=== PATIENT | female | born 1985 | race American Indian/Alaskan Native ===

== ENCOUNTER 2016-09-02 09:58 | Outpatient (CLI) | payer MEDICAID ==
--- NOTE | 2016-09-01 08:40 | History and Physical Report ---
History of Present Illness Date of examination: 08/31/16 Chief complaint: Incompetent cervix History of present illness: Pt is a 30 year old -[place] female [id number] KATIANA 03/10/17 at 13w0d with a h/o incompetent cervix presents for Hanson cerclage placement. She denies vaginal bleeding, cramping or leakage of fluid. She has had care at [facility] since 7 wks complicated by morbid obesity, chronic hypertension on no meds presently, anemia on iron supplementation, beta thalassemia minor, genital herpes without lesion or prodrome, previous section x 1, and h/o incompetent cervix with two second trimester losses and previous cerclage placement x 2. 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 LIVING ASSISTANT History: abnormal PAP smear, herpes Family/Genetic History: diabetes, heart disease Social history: no significant social history - Obstetrical History Expected Date of Delivery: 03/10/17 Actual Gestation: 12 Week(s) 6 Day(s) : 6 Para: 1 Hx # Term Pregnancies: 1 Number of Pregnancies: 2 Spontaneous Abortions: 2 Induced : 0 Number of Living Children: 1 Medications and Allergies Allergies Allergy/AdvReac Type Severity Reaction Status Date / Time No Known Allergies Allergy Verified 02/07/15 18:23 Home Medications Medication Instructions Recorded Confirmed Last Taken Type Ferrous Sulfate [Feosol 325 MG tab] 325 mg PO TID #120 tablet 02/12/15 Unknown Rx Ibuprofen [Motrin 800 MG tab] 800 mg PO Q6H PRN #30 tablet 02/12/15 Unknown Rx oxyCODONE /ACETAMINOPHEN [Percocet 2 tab PO Q4H PRN #30 tablet 02/12/15 Unknown Rx 5/325 mg] Review of Systems All systems: negative - Physical Exam Breasts: Positive: deferred Cardiovascular: Regular rate Lungs: Positive: Clear to auscultation Abdomen: Positive: soft (obese) Uterus: Positive: enlarged (gravid ) Extremities: Positive: normal - Obstetrical FHR: auscultation normal Results All other labs normal. Assessment and Plan A: IUP at 13w0d Incompetent Cervix Morbid Obesity Chronic Hypertension- no meds Previous x 1 Anemia on iron supplementation Beta thalassemia minor Genital Herpes P: Proceed with Hanson cerclage placement.
[~2016-09-02 09:58] MED LIST: ANCEF/STERILE WATER 2 GM/20 ML 2 GM/20 ML SYRINGE IV NR; NACL 0.9% 1000 ML 1,000 ML IV SCH
[2016-09-02] MEDS ORDERED: LACTATED RINGERS 1,000 ML ONE ×3 (10:21→17:28)
[2016-09-02] MEDS ORDERED: PEPCID IV ONE (10:50)
[2016-09-02] MEDS ORDERED: REGLAN ONE (10:50)
[2016-09-02] MEDS ORDERED: BICITRA ONE (10:50)
[2016-09-02 10:56] LABS: Hematocrit 30.9 % (30.3-42.9); Hemoglobin 9.4 gm/dl (10.1-14.3); Mean Corpuscular HGB Conc 30 % (30-34); Mean Corpuscular Hemoglobin 22 pg (28-32); Mean Corpuscular Volume 71 fl (79-97); Platelet Count 458 K/mm3 (140-440); Red Blood Count 4.38 M/mm3 (3.65-5.03); Red Cell Distribution Width 18.5 % (13.2-15.2); White Blood Count 13.8 K/mm3 (4.5-11.0)
--- NOTE | 2016-09-02 13:56 | Ultrasound Report ---
Limited OB ultrasound: There is a alvarez intrauterine in transverse lie with the head to the maternal right. There is heart motion of 156 beats per minute. Estimated age is 11 weeks 6 days.
--- NOTE | 2016-09-02 14:24 | Anesthesia Consultation ---
Anesthesia Consult and Med Hx Date of service: 09/02/16 - Airway Anesthetic Teeth Evaluation: Good ROM Head & Neck: Adequate Mental/Hyoid Distance: Adequate Mallampati Class: Class II Intubation Access Assessment: Probably Good - Pre-Operative Health Status ASA Pre-Surgery Classification: ASA3 Proposed Anesthetic Plan: Spinal - Pulmonary Hx Smoking: No Hx Asthma: No COPD: No Hx Pneumonia: No - Cardiovascular System Hx Hypertension: Yes (pt states that BP was high last 2 visits) Hx Coronary Artery Disease: No Hx Heart Attack/AMI: No Hx Angina: No - Central Nervous System Hx Seizures: No CVA: No Hx Psychiatric Problems: No - Endocrine Hx Renal Disease: No Hx End Stage Renal Disease: No Hx Non-Insulin Dependent Diabetes: No Hx Thyroid Disease: No Hx Hypothyroidism: No Hx Hyperthyroidism: No - Hematic Hx Anemia: Yes Hx Sickle Cell Disease: No - Other Systems Hx Obesity: Yes (BMI 46.7)
[2016-09-02] MEDS ORDERED: PHENERGAN PR PRN (14:25)
[2016-09-02] MEDS ORDERED: NARCAN 0.4 MG/1 ML IV PRN (14:25)
[2016-09-02] MEDS ORDERED: ZOFRAN IV PRN (14:25)
[2016-09-02] MEDS ORDERED: BENADRYL IV PRN (14:25)
[2016-09-02] MEDS ORDERED: PHENERGAN PO PRN (14:25)
--- NOTE | 2016-09-02 14:25 | Anesthesia Day of Surgery ---
Anesthesia Day of Surgery - Day of Surgery Patient Examined: Yes Patient H&P Reviewed: Yes Patient is NPO: Yes
[2016-09-02] MEDS ORDERED: SODIUM CHLORIDE FLUSH SYRINGE 10 ML IV SCH (15:00)
[2016-09-02] MEDS ORDERED: NACL 0.9% 1000 ML 1,000 ML ONE (15:17)
--- NOTE | 2016-09-02 16:16 | Operative Report ---
Operative Report Operative Report: Date of procedure: September 02, 2016 Preoperative diagnosis: 1) IUP at 13w0d 2) Incompetent Cervix 3) Morbid Obesity 4) Chronic Hypertension Postoperative diagnosis: Same Procedure: Hanson Cerclage Surgeon: Paris Mejias M.D. Findings: Cervix approximately 2 cm in length and closed on exam Anesthesia: Spinal EBL: 25 mL IV fluid: 700 mL Urine output: 50 mL prior to procedure Specimens: None Drains: None Complications: None. Counts correct 2 Disposition: Stable to recovery Indication for procedure: The patient is a 30 year old -Brune[place] female [id number] at 13w0d with a h/o cervical incompetence who presents for Hanson cerclage placement. Operation in detail: After the risks, benefits, alternatives and complications of the procedure were explained to the patient she gave informed consent for the procedure. FHTs were documented prior to the procedure. She was subsequently taken to the operating room with her IV noted to be running. A timeout was performed. Spinal anesthesia was administered without difficulty. She was then placed in high lithotomy position and prepped and draped in normal sterile fashion. A second timeout was performed. The bladder was drained with a red rubber catheter yielding 50 mL of urine prior to the procedure. An open-sided speculm was placed into the patient's vagina for adequate visualization of the cervix. A Ring forcep was placed on the anterior lip of the cervix. A #1 Prolene suture was inserted through the cervical mucosa starting at the 12 o'clock position. A circumferential stitch was placed in a purse-string fashion ending at the 12 o'clock position. A sterile button was used and both ends of the suture were threaded through the button. Multiple knots of the #1 Prolene suture were tied on the surface of the sterile button. There was no evidence of any active bleeding or leakage of fluid. All instruments were then removed from the vagina. The procedure was ended. The patient was then placed in the dorsal supine position and taken to the recovery room in stable condition. All instrument, lap and needle counts were correct 2. An ultrasound has been ordered to follow the procedure.
--- NOTE | 2016-09-02 16:21 | Short Stay Summary ---
Short Stay Documentation Date of service: 09/02/16 - History Social history: no significant social history - Allergies and Medications Current Medications: Allergies bupropion HCl [From Wellbutrin] Allergy (Severe, Verified 09/02/16 11:17) Shortness of Breath and hives Home Medications Medication Instructions Recorded Confirmed Last Taken Type Ferrous Sulfate [Feosol 325 MG tab] 325 mg PO TID #120 tablet 02/12/15 Unknown Rx Ibuprofen [Motrin 800 MG tab] 800 mg PO Q6H PRN #30 tablet 02/12/15 Unknown Rx oxyCODONE /ACETAMINOPHEN [Percocet 2 tab PO Q4H PRN #30 tablet 02/12/15 Unknown Rx 5/325 mg] HYDROcodone/APAP 5-325 [[place] 1 each PO Q6HR PRN #30 tablet 09/02/16 Unknown Rx 5/325] Active Medications Diphenhydramine HCl (Benadryl) 12.5 mg IV Q2H PRN PRN Reason: Itching Cefazolin Sodium (Ancef/Sterile Water 2 Gm/20 Ml) 2 gm in 20 mls @ 80 mls/hr IV PREOP NR PRN Reason: Protocol Stop: 09/02/16 23:01 Sodium Chloride (Nacl 0.9% 1000 Ml) 1,000 mls @ 125 mls/hr IV DIRECT SEAN Stop: 09/02/16 23:00 Naloxone HCl (Narcan 0.4 Mg/1 Ml) 0.2 mg IV Q2MIN PRN PRN Reason: Res Rate </= 8 or 02 SAT < 92% Stop: 09/04/16 14:26 Ondansetron HCl (Zofran) 4 mg IV Q8H PRN PRN Reason: Nausea And Vomiting Promethazine HCl (Phenergan) 25 mg PO Q6H PRN PRN Reason: Nausea And Vomiting Promethazine HCl (Phenergan) 25 mg [place] Q6H PRN PRN Reason: Nausea And Vomiting Sodium Chloride (Sodium Chloride Flush Syringe 10 Ml) 10 ml IV PRN SEAN - Physical exam Breasts: deferred - Brief post op/procedure progress note Date of procedure: 09/02/16 Pre-op diagnosis: 1) IUP at 13w0d 2) Incompetent Cervix 3) Morbid Obesity 4) HTN Post-op diagnosis: same Procedure: Hanson Cerclage placement Anesthesia: spinal Findings: Cervix approximately 2 cm in length and closed on exam Surgeon: TOPHER CRENSHAW Estimated blood loss: minimal (25 mL) Pathology: none Condition: stable - Hospital course Hospital course: Pt tolerated Hanson cerclage placement well. She was observed postoperatively until she met discharge criteria. - Disposition Condition at discharge: Stable Disposition: DISCHARGED TO HOME OR SELFCARE - Discharge Diagnoses (1) Morbid obesity with BMI of 45.0-49.9, adult Status: Acute (2) Chronic hypertension affecting Status: Acute (3) Cervical incompetence affecting management of in second trimester , antepartum Status: Acute (4) Previous section complicating Status: Acute Short Stay Discharge Plan Activity: other (Nothing in vagina for the remainder of the ) Weight Bearing Status: Full Weight Bearing Diet: regular Additional Instructions: Spotting, cramping and pain while urinating are expected for 3-5 days after the procedure. Please call your doctor for severe pain or heavy vaginal bleeding greater than one pad per hour. Follow up with: TOPHER CRENSHAW MD [Primary Care Provider] - 7 Days Prescriptions: HYDROcodone/APAP 5-325 [[place] 5/325] 1 each PO Q6HR PRN #30 tablet PRN Reason: Pain
[2016-09-02] MEDS ORDERED: NORCO 5/325 PO PRN (16:26)
[2016-09-02 19:20] VITALS: BP 146/79
--- NOTE | 2016-09-04 08:26 | Ultrasound Report ---
ULTRASOUND OB LIMITED History: Status post cervical cerclage, confirm viability Technique: Transabdominal ultrasound with Doppler interrogation. Gestation: Single Position: Breech Heart Rate: 159 BPM
== END 2016-09-02 19:38 | disposition home or self-care (01) ==
LOC: TRG 09:58 → LD 09:59 → EDSTATUS 11:30 → TRG 19:38
PROVIDERS: ATTEND Obstetrics & Gynecology
DX: O34.31 Maternal care for cervical incompetence, first trimester (principal); O32.2XX0 Maternal care for transverse and oblique lie, not applicable or unspecified; O16.1 Unspecified maternal hypertension, first trimester; O99.211 Obesity complicating pregnancy, first trimester; Z3A.11 11 weeks gestation of pregnancy
CPT/HCPCS: 36415; 59320; 76815; 85027; 86850; 86870; 86900; 86901; J0690; J2405; J2765; J7030; J7120

== ENCOUNTER 2017-01-09 10:36 | Outpatient (CLI) | payer MEDICAID ==
[2017-01-09] MEDS ORDERED: LACTATED RINGERS 500 ML IV ONE (11:04)
[2017-01-09] MEDS ORDERED: NORCO 5/325 PO PRN (11:08)
[2017-01-09 15:26] VITALS: BP 139/82
--- NOTE | 2017-01-10 09:56 | Ultrasound Report ---
Gestation: Single Position: Cephalic Amniotic Fluid: ORQUIDEA = 12.6 cm Placenta: Anterior Placental Grade: 0 Heart Rate: 120 BPM No evidence of abruption.
== END 2017-01-09 15:50 | disposition home or self-care (01) ==
LOC: TRG 10:36 → LD 12:09 → TRG 15:50
PROVIDERS: ATTEND Obstetrics & Gynecology
DX: O47.03 False labor before 37 completed weeks of gestation, third trimester (principal); Z3A.31 31 weeks gestation of pregnancy
CPT/HCPCS: 59025; 76815

== ENCOUNTER 2017-02-03 17:43 | Inpatient (IN) | payer MEDICAID ==
[2017-02-03 18:16] LABS: Hematocrit 25.3 % (30.3-42.9); Hemoglobin 7.6 gm/dl (10.1-14.3); Mean Corpuscular HGB Conc 30 % (30-34); Platelet Count 359 K/mm3 (140-440); Red Blood Count 3.75 M/mm3 (3.65-5.03); Red Cell Distribution Width 17.1 % (13.2-15.2)
[2017-02-03 18:20] LABS: Bilirubin,Urine NEG (Negative); Blood,Urine NEG (Negative); Ketones,Urine 20 mg/dL (Negative); Leukocyte Esterase,Urine TR (Negative); Mucus,Urine FEW /HPF; Nitrite,Urine NEG (Negative); Protein,Urine <15 mg/dL mg/dL (Negative); Urobilinogen,Urine < 2.0 mg/dL (<2.0)
[2017-02-03 18:20] LABS: Mean Corpuscular Hemoglobin 20 pg (28-32); Mean Corpuscular Volume 68 fl (79-97)
[2017-02-03 18:36] LABS: Alanine Aminotransferase 13 units/L (7-56); Lactate Dehydrogenase 268 units/L (91-180); Uric Acid 4.8 mg/dL (3.5-7.6)
[2017-02-03] MEDS ORDERED: NORMODYNE PO SCH (19:06)
[2017-02-03] MEDS ORDERED: APRESOLINE IV PRN (22:05)
[2017-02-03] MEDS ORDERED: NORMODYNE PO ONE (22:05)
[2017-02-03] MEDS: AMBIEN PO PRN (22:55)
[2017-02-03] MEDS: CELESTONE SOLUSPAN IM SCH (22:58)
[2017-02-03] MEDS ORDERED: LACTATED RINGERS 1,000 ML IV SCH (23:00)
--- NOTE | 2017-02-04 07:52 | Ultrasound Report ---
ULTRASOUND OB LIMITED History: well being Technique: Transabdominal ultrasound with Doppler interrogation. Gestation: Single Position: Cephalic Amniotic Fluid: Normal ORQUIDEA = 13.5 cm Heart Rate: 138 BPM
--- NOTE | 2017-02-04 07:52 | Ultrasound Report ---
ULTRASOUND BIOPHYSICAL PROFILE: History: well being Technique: Transabdominal ultrasound with Doppler interrogation. 2 - breathing movements 2 - movements 2 - posture and tone 2 - Qualitative amniotic fluid volume 8 - TOTAL SCORE OF POSSIBLE 8 Heart Rate (bpm) 138
--- NOTE | 2017-02-04 08:56 | History and Physical Report ---
History of Present Illness Date of examination: 02/04/17 Date of admission: 02/03/17 21:03 Chief complaint: elevated BP in the clinic History of present illness: This is a 31 yo at 35 weeks here for elevated BP. She was sent over by the [facility] with BP 160/70s. She denies any manning, bv, pain on right upper side nor scotomata. She was sent to triage and had a PIH w/u essentially normal. see labs section. Patient had been a known chronic HTN on no meds and had some elevated BP in the clinic and was RX labetolol 100 mg BID. She did not bean picker RX until yesterday and took one dose. She was seen by [facility] and noted elevated BP and had another appt at [facility] and elevated BP. 160/80s. Patient had a BPP 8/8 normal ORQUIDEA. NST category 1. patient was given 200 mg labetolol and consult on phone with Dr. Degroot who recommneded that if BP decreased may be discharged home with f/u 2x weekly antepartum testing. Patient BP decreased but increased to 160/70s and it was decided to keep patient for 24 hr for observation. During the night upon admission increased to 200 mg ( total of 400mg bid) BP through out night 110-140/70-80s. Awaiting MFM consultation and 24 hr urine collection turned into lab emy yesterday . 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 denies: smoking, alcohol abuse, prescription drug abuse, IV drug use - Obstetrical History Expected Date of Delivery: 03/10/17 Actual Gestation: 35 Week(s) 1 Day(s) : 6 Para: 1 Hx # Term Pregnancies: 1 Number of Pregnancies: 2 Spontaneous Abortions: 2 Induced : 0 Number of Living Children: 1 Medications and Allergies Allergies Allergy/AdvReac Type Severity Reaction Status Date / Time bupropion HCl Allergy Severe Shortness Verified 09/02/16 11:17 [From Wellbutrin] of Breath Home Medications Medication Instructions Recorded Confirmed Last Taken Type Ferrous Sulfate [Feosol 325 MG tab] 325 mg PO TID #120 tablet 02/12/15 Unknown Rx Ibuprofen [Motrin 800 MG tab] 800 mg PO Q6H PRN #30 tablet 02/12/15 Unknown Rx oxyCODONE /ACETAMINOPHEN [Percocet 2 tab PO Q4H PRN #30 tablet 02/12/15 Unknown Rx 5/325 mg] HYDROcodone/APAP 5-325 [[place] 1 each PO Q6HR PRN #30 tablet 09/02/16 Unknown Rx 5/325] Active Meds: Active Medications Betamethasone Acet/Betameth SodPhos (Celestone Soluspan) 12 mg IM Q24H SEAN Stop: 02/04/17 23:01 Last Admin: 02/03/17 22:58 Dose: 12 mg Hydralazine HCl (Apresoline) 5 mg IV Q30MIN PRN PRN Reason: Blood Pressure Lactated Ringer's (Lactated Ringers) 1,000 mls @ 125 mls/hr IV DIRECT SEAN Labetalol HCl (Normodyne) 300 mg PO BID SEAN Zolpidem Tartrate (Ambien) 10 mg PO QHS PRN PRN Reason: Insomnia Last Admin: 02/03/17 22:55 Dose: 10 mg Review of Systems All systems: negative - Vital Signs Vital signs: Vital Signs Pulse BP 79 146/80 02/03/17 17:49 02/03/17 17:49 Temp Pulse Resp BP Pulse Ox 97.3 F L 85 16 145/83 02/04/17 07:15 02/04/17 08:34 02/04/17 07:15 02/04/17 08:34 - Physical Exam Breasts: Positive: deferred Cardiovascular: Regular rate, Normal S1 Lungs: Positive: Clear to auscultation, Normal air movement Abdomen: Positive: normal appearance, soft, normal bowel sounds. Negative: distention, tenderness, guarding Genitourinary (Female): Positive: normal external genitalia, normal perenium Vulva: both: normal Vagina: Positive: normal moisture Uterus: Positive: normal size, enlarged, normal contour Anus/Rectum: Positive: normal perianal skin Extremities: Positive: normal Deep Tendon Reflex Grade: Normal +2 - Obstetrical FHR: category 1 Results Result Diagrams: 02/03/17 17:45 02/03/17 17:45 Abnormal lab results 02/03/17 02/03/17 02/03/17 Range/Units 17:45 17:45 17:45 WBC 13.0 H (4.5-11.0) K/mm3 Hgb 7.6 L (10.1-14.3) gm/dl Hct 25.3 L (30.3-42.9) % MCV 68 L (79-97) fl MCH 20 L (28-32) pg RDW 17.1 H (13.2-15.2) % Creatinine 0.5 L (0.7-1.2) mg/dL Lactate Dehydrogenase 268 H (91-180) units/L Crossmatch See Detail All other labs normal. Ultrasound: report reviewed Assessment and Plan A/P IUP 35+1 weeks with chronic HTN assess for Preeclampsia previous 24 hr urine 290 on continuous monitoring labetolol 300 mg po bid awiat 24 uring turned in yesterday s/p BMZ x1 next dose due today close monitor of BP goal 140/80 await MFM recommendations
[2017-02-04] MEDS ORDERED: NORMODYNE PO SCH (10:00)
[2017-02-04] MEDS: NORMODYNE PO SCH ×2 (10:16→22:29)
[2017-02-04 11:15] LABS: Hematocrit 24.9 % (30.3-42.9); Hemoglobin 7.6 gm/dl (10.1-14.3); Mean Corpuscular HGB Conc 31 % (30-34); Platelet Count 347 K/mm3 (140-440); Red Blood Count 3.71 M/mm3 (3.65-5.03); Red Cell Distribution Width 17.2 % (13.2-15.2)
[2017-02-04 11:16] LABS: Mean Corpuscular Hemoglobin 21 pg (28-32); Mean Corpuscular Volume 67 fl (79-97)
[2017-02-04 11:38] LABS: Alanine Aminotransferase 14 units/L (7-56); Lactate Dehydrogenase 213 units/L (91-180)
--- NOTE | 2017-02-04 12:42 | Consultation ---
History of Present Illness Reason for consult: other (This is a 31 yo at 35.1 weeks presented with elevated BP on 02/03/17 by [facility] with BP 160/70s. Patient had been a known chronic HTN on no meds and had some elevated BP her Ob appt and was RX labetolol 100 mg BID ( patient did not commence until 02/03/17 ). Patient followed by [facility] for Morbid obesity , incompetent cervix , cerclage in situ , and gestational HTN . During this admission patient was given 200 mg labetolol and consult on phone with Dr. Degroot who recommneded that if BP decreased may be discharged home with f/u 2x weekly antepartum testing. Patient BP decreased but increased to 160/70s Patient currently on Labetalol 300 mg PO BID During the night BP through out night 110-140/70-80s. Awaiting resulted 24 hr urine . 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 PAP smear (2015 abnormal ) Family/Genetic History: diabetes (father ), heart disease (father ) - Obstetrical History : 6 Medications and Allergies Allergies Allergy/AdvReac Type Severity Reaction Status Date / Time bupropion HCl Allergy Severe Shortness Verified 09/02/16 11:17 [From Wellbutrin] of Breath Home Medications Medication Instructions Recorded Confirmed Last Taken Type Ferrous Sulfate [Feosol 325 MG tab] 325 mg PO TID #120 tablet 02/12/15 Unknown Rx Ibuprofen [Motrin 800 MG tab] 800 mg PO Q6H PRN #30 tablet 02/12/15 Unknown Rx oxyCODONE /ACETAMINOPHEN [Percocet 2 tab PO Q4H PRN #30 tablet 02/12/15 Unknown Rx 5/325 mg] HYDROcodone/APAP 5-325 [[place] 1 each PO Q6HR PRN #30 tablet 09/02/16 Unknown Rx 5/325] Active Meds: Active Medications Betamethasone Acet/Betameth SodPhos (Celestone Soluspan) 12 mg IM Q24H SEAN Stop: 02/04/17 23:01 Last Admin: 02/03/17 22:58 Dose: 12 mg Hydralazine HCl (Apresoline) 5 mg IV Q30MIN PRN PRN Reason: Blood Pressure Lactated Ringer's (Lactated Ringers) 1,000 mls @ 125 mls/hr IV DIRECT SEAN Labetalol HCl (Normodyne) 300 mg PO BID SEAN Last Admin: 02/04/17 10:16 Dose: 300 mg Zolpidem Tartrate (Ambien) 10 mg PO QHS PRN PRN Reason: Insomnia Last Admin: 02/03/17 22:55 Dose: 10 mg Review of Systems Constitutional: no lethargy Eyes: no blurred vision, no photophobia Cardiovascular: edema (trace however patient is considered Morbidly Obese ), no chest pain, no palpitations, no rapid/irregular heart beat, no syncope, no shortness of breath, no dyspnea on exertion Breasts: deferred Gastrointestinal: no abdominal pain, no vomiting, no heartburn Musculoskeletal: no low back pain Integumentary: no rash Neurological: no headaches Psychiatric: depression (history and is under medical intervention of Zoloft ( ) ) Endocrine: no weight change Hematologic/Lymphatic: no easy bruising, no easy bleeding Allergic/Immunologic: no wheezing - Vital Signs Vital signs: Vital Signs Pulse BP 79 146/80 02/03/17 17:49 02/03/17 17:49 Temp Pulse Resp BP Pulse Ox 97.3 F L 93 H 16 122/72 02/04/17 07:15 02/04/17 12:04 02/04/17 07:15 02/04/17 12:04 - Physical Exam Breasts: Positive: deferred Cardiovascular: Regular rate Lungs: Positive: Normal air movement Abdomen: Negative: tenderness, guarding Cervix: Positive: other (cerclage in situ ( placed 09/02/16 )) Uterus: Positive: other (gravid ). Negative: tender Extremities: Positive: edema (trace) Deep Tendon Reflex Grade: Normal +2 - Obstetrical FHR: category 1 Uterine Contraction Monitor Mode: External (none traced) Results Result Diagrams: 02/04/17 10:40 02/03/17 17:45 Abnormal lab results 02/03/17 02/03/17 02/03/17 Range/Units 17:45 17:45 17:45 WBC 13.0 H (4.5-11.0) K/mm3 Hgb 7.6 L (10.1-14.3) gm/dl Hct 25.3 L (30.3-42.9) % MCV 68 L (79-97) fl MCH 20 L (28-32) pg RDW 17.1 H (13.2-15.2) % Creatinine 0.5 L (0.7-1.2) mg/dL Lactate Dehydrogenase 268 H (91-180) units/L Crossmatch See Detail 02/04/17 02/04/17 Range/Units 10:40 10:40 WBC (4.5-11.0) K/mm3 Hgb 7.6 L (10.1-14.3) gm/dl Hct 24.9 L (30.3-42.9) % MCV 67 L (79-97) fl MCH 21 L (28-32) pg RDW 17.2 H (13.2-15.2) % Creatinine (0.7-1.2) mg/dL Lactate Dehydrogenase 213 H (91-180) units/L Crossmatch All other labs normal. Ultrasound: report reviewed (See chart for full report . 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 Degroot ) 1) Consider discharge with no findings of Superimposed PreEclampsia , CAT I tracing , no maternal/ compromise 2) Iron supplement TID 3) Out patient Hematology consult 4) Upon discharge close supervison with weekly OB and [facility] for AP and BP surveillance 5) Forward recently performed 24 hr urine to [facility] 6) Precautions reviewed 7) No change in Labetalol 300mg PO BID patient to continue as outpatient 8) With any concerns call on [facility] doctor_ Dr. Degroot
--- NOTE | 2017-02-04 16:20 | Discharge Summary ---
Providers - Providers Date of Admission: 02/03/17 21:03 Date of discharge: 02/04/17 Attending physician: CLARISA RAMON MD Primary care physician: CLARISA RAMON MD Hospitalization Reason for admission: other (chronic HTN) Discharge diagnosis: other (chronic HTN ) Hospital course: Patient to be discharged home on labetolol 300 mg po bid bed rest 2x weekly Antepartum testing strict precautions given Condition at discharge: Good Disposition: DC-01 TO HOME OR SELFCARE Plan - Discharge Medications Prescriptions: Labetalol [Normodyne TAB] 100 mg PO BID #60 tablet - Provider Discharge Summary Additional instructions: [] Smoking cessation referral if applicable(refer to patient education folder for contact #) [] Refer to [facility]'s [facility] Booklet Call your doctor immediately for: * Fever > 100.5 * Heavy vaginal bleeding ( >1 pad per hour) * Severe persistent headache * Shortness of breath * Reddened, hot, painful area to leg or breast * Drainage or odor from incision. * Keep incision clean and dry at all times and follow doctor's instructions regarding bathing/showering - Follow up plan Follow up: CLARISA RAMON MD [Primary Care Provider] - 7 Days
[2017-02-04 22:27] LABS: Uric Acid 4.7 mg/dL (3.5-7.6)
[2017-02-04] MEDS: CELESTONE SOLUSPAN IM SCH (23:04)
[2017-02-04] MEDS: AMBIEN PO PRN (23:05)
--- NOTE | 2017-02-05 08:22 | Event Note ---
Date: 02/05/17 No new complaints this am. Pt will be discharged after reactive NST with follow up on Wednesday with Dr Mejias and on Wed with BRITT.
[2017-02-05 10:45] VITALS: BP 140/77
[2017-02-05] MEDS: NORMODYNE PO SCH (10:45)
== END 2017-02-05 11:55 | disposition home or self-care (01) | DRG 781 ==
LOC: TRG 17:43 → LD 17:44 → TRG 21:02 → LD 21:03
PROVIDERS: ADMIT Obstetrics & Gynecology; ATTEND Obstetrics & Gynecology
DX: O10.913 Unspecified pre-existing hypertension complicating pregnancy, third trimester (principal); Z3A.35 35 weeks gestation of pregnancy; O99.343 Other mental disorders complicating pregnancy, third trimester; F32.9 Major depressive disorder, single episode, unspecified; Z88.8 Allergy status to other drugs, medicaments and biological substances; O99.213 Obesity complicating pregnancy, third trimester; E66.01 Morbid (severe) obesity due to excess calories; Z68.42 Body mass index [BMI] 45.0-49.9, adult; D56.3 Thalassemia minor
CPT/HCPCS: 36415; 76815; 76819; 81001; 82565; 83615; 84450; 84460; 84550; 85027; 86850; 86900; 86901; 86922; J0702; J7120

== ENCOUNTER 2017-02-05 19:41 | Outpatient (CLI) | payer MEDICAID ==
[2017-02-05] MEDS ORDERED: LACTATED RINGERS 1,000 ML IV ONE (20:24)
[2017-02-05 21:22] VITALS: BP 147/98
== END 2017-02-05 23:00 | disposition home or self-care (01) ==
LOC: TRG 19:41
PROVIDERS: ATTEND Obstetrics & Gynecology
DX: O36.8130 Decreased fetal movements, third trimester, not applicable or unspecified (principal); O26.893 Other specified pregnancy related conditions, third trimester; R07.9 Chest pain, unspecified; Z3A.35 35 weeks gestation of pregnancy
CPT/HCPCS: 96360

== ENCOUNTER 2017-02-08 15:00 | Inpatient (IN) | payer MEDICAID ==
[2017-02-08 16:14] LABS: Hematocrit 24.1 % (30.3-42.9); Hemoglobin 7.3 gm/dl (10.1-14.3); Mean Corpuscular HGB Conc 30 % (30-34); Platelet Count 333 K/mm3 (140-440); Red Cell Distribution Width 17.5 % (13.2-15.2); White Blood Count 13.1 K/mm3 (4.5-11.0)
[2017-02-08 16:26] LABS: Mean Corpuscular Hemoglobin 20 pg (28-32); Mean Corpuscular Volume 67 fl (79-97)
[2017-02-08 16:34] LABS: Bilirubin,Urine NEG (Negative); Blood,Urine NEG (Negative); Ketones,Urine NEG (Negative); Leukocyte Esterase,Urine NEG (Negative); Nitrite,Urine NEG (Negative); Protein,Urine <15 mg/dL mg/dL (Negative)
[2017-02-08 16:37] LABS: Alanine Aminotransferase 92 units/L (7-56); Lactate Dehydrogenase 226 units/L (91-180)
[2017-02-08] MEDS ORDERED: PEPCID IV ONE (18:08)
[2017-02-08] MEDS ORDERED: CALCIUM GLUCONATE IV ONE (18:08)
[2017-02-08] MEDS ORDERED: REGLAN IV ONE (18:08)
[2017-02-08] MEDS ORDERED: MAGNESIUM SULFATE 4GM/100ML 4 GM/100 ML BAG IV ONE (18:08)
[2017-02-08] MEDS ORDERED: BICITRA PO ONE (18:08)
[2017-02-08] MEDS ORDERED: NACL 0.9% 500 ML 500 ML IV ONE (18:28)
--- NOTE | 2017-02-08 18:28 | Anesthesia Consultation ---
Anesthesia Consult and Med Hx Date of service: 02/08/17 - Airway Anesthetic Teeth Evaluation: Good ROM Head & Neck: Adequate Mental/Hyoid Distance: Adequate Mallampati Class: Class II Intubation Access Assessment: Probably Good - Pulmonary Exam CTA: Yes - Cardiac Exam Cardiac Exam: RRR - Pre-Operative Health Status ASA Pre-Surgery Classification: ASA3, Emergency Proposed Anesthetic Plan: Epidural, Spinal - Pulmonary Hx Smoking: No Hx Asthma: No COPD: No Hx Pneumonia: No - Cardiovascular System Hx Hypertension: Yes (PIH) Hx Coronary Artery Disease: No Hx Heart Attack/AMI: No Hx Angina: No - Central Nervous System Hx Seizures: No CVA: No Hx Psychiatric Problems: No - Endocrine Hx Renal Disease: No Hx End Stage Renal Disease: No Hx Non-Insulin Dependent Diabetes: No Hx Thyroid Disease: No Hx Hypothyroidism: No Hx Hyperthyroidism: No - Hematic Hx Anemia: No Hx Sickle Cell Disease: No - Other Systems Hx Alcohol Use: No Hx Obesity: Yes (BMI 46.7)
--- NOTE | 2017-02-08 18:29 | Anesthesia Day of Surgery ---
Anesthesia Day of Surgery - Day of Surgery Patient Examined: Yes Patient H&P Reviewed: Yes Patient is NPO: Yes (NPO since 14:00)
[2017-02-08] MEDS ORDERED: PITOCin/NS 20 UNIT/1000ML DRIP 20 UNITS/1,000 ML BAG IV SCH (19:00)
[2017-02-08] MEDS ORDERED: ANCEF/STERILE WATER 2 GM/20 ML 2 GM/20 ML SYRINGE IV NR (19:00)
[2017-02-08] MEDS ORDERED: LACTATED RINGERS 1,000 ML IV SCH (19:00)
[2017-02-08] MEDS: MAGNESIUM SULFATE 40GM/1000ML 40 GM/1,000 ML BAG IV SCH ×2 (19:36→23:19)
[2017-02-08] MEDS: APRESOLINE IV PRN ×3 (20:09→23:38)
[2017-02-08] MEDS: LACTATED RINGERS 1,000 ML IV SCH (20:10)
--- NOTE | 2017-02-08 20:15 | History and Physical Report ---
History of Present Illness Date of examination: 02/08/17 Date of admission: 02/08/17 15:36 Chief complaint: elevated blood pressures History of present illness: Pt is a 31 year old -[place] female KATIANA 03/10/17 at 35w5d who presents from the office with elevated blood pressures 150-160/80-90s in the office. She reports blurry vision and headache on Wednesday02/05/17. She presented to triage, was evaluated and sent home. She also reports that she attempted to take the prescribed labetalol but felt it caused chest pain. She denies chest pain today. She reports decreased movement on Wednesday, but good movement today. She has had care at [facility] since 7 wks complicated by h/o incompetent cervix s/p cerclage placement in August 2016, morbid obesity, anemia, chronic hypertension non-compliant with prescribed labetalol secondary to side effects, beta thalassemia minor, genital herpes without lesion or prodrome, previous x 1. She is GBS unknown (cultures pending at the office). She does not desire future fertility. She was admitted last week for elevated blood pressures and received two doses of betamethasone during that admission on 02/03 and 02/04. While pt being evaluated in triage her blood pressure went up to 170/90s and her AST and ALT were noted to have increased from 14 and 14 on 01/25/17 to [address] Degroot from [facility] was contacted and updated on the patient's clinical status and lab results with recommendation to proceed with delivery. Past History Past Medical History: hypertension, hematologic disorders (beta thalassemia minor, anemia ), other (morbid obesity ) Past Surgical History: [employer]/uterine surgery (cerclage x 2), section, D& C (x 2 ) [employer] History: abnormal PAP smear, herpes Family/Genetic History: diabetes, heart disease Social history: no significant social history - Obstetrical History Expected Date of Delivery: 03/10/17 Actual Gestation: 35 Week(s) 5 Day(s) : 6 Para: 3 Hx # Term Pregnancies: 1 Number of Pregnancies: 2 Spontaneous Abortions: 2 Induced : 0 Number of Living Children: 1 Medications and Allergies Allergies Allergy/AdvReac Type Severity Reaction Status Date / Time bupropion HCl Allergy Severe Shortness Verified 09/02/16 11:17 [From Wellbutrin] of Breath Home Medications Medication Instructions Recorded Confirmed Last Taken Type Ferrous Sulfate [Feosol 325 MG tab] 325 mg PO TID #120 tablet 02/12/15 Unknown Rx Ibuprofen [Motrin 800 MG tab] 800 mg PO Q6H PRN #30 tablet 02/12/15 Unknown Rx oxyCODONE /ACETAMINOPHEN [Percocet 2 tab PO Q4H PRN #30 tablet 02/12/15 Unknown Rx 5/325 mg] HYDROcodone/APAP 5-325 [[place] 1 each PO Q6HR PRN #30 tablet 09/02/16 Unknown Rx 5/325] Labetalol [Normodyne TAB] 100 mg PO BID #60 tablet 02/04/17 Unknown Rx Labetalol HCl 300 mg PO BID #60 tablet 02/05/17 Unknown Rx Active Meds: Active Medications Hydralazine HCl (Apresoline) 5 mg IV Q30MIN PRN PRN Reason: Hypertension Last Admin: 02/08/17 20:09 Dose: 5 mg Cefazolin Sodium (Ancef/Sterile Water 2 Gm/20 Ml) 2 gm in 20 mls @ 80 mls/hr IV PREOP NR PRN Reason: Protocol Stop: 02/08/17 23:59 Lactated Ringer's (Lactated Ringers) 1,000 mls @ 2,250 mls/hr IV PREOP SEAN Stop: 02/09/17 19:27 Last Admin: 02/08/17 20:10 Dose: 2,250 mls/hr Lactated Ringer's (Lactated Ringers) 1,000 mls @ 125 mls/hr IV DIRECT SEAN Magnesium Sulfate (Magnesium Sulfate 40gm/1000ml) 40 gm in 1,000 mls @ 25 mls/ hr IV TITR SEAN PRN Reason: 1 GM/HR Stop: 02/09/17 18:59 Last Admin: 02/08/17 19:36 Dose: 1 gm/hr, 25 mls/hr Oxytocin/Sodium Chloride (Pitocin/Ns 20 Unit/1000ml Drip) 20 units in 1,000 mls @ 0 mls/hr IV TITR SEAN PRN Reason: As Directed Review of Systems All systems: negative - Vital Signs Vital signs: Vital Signs Pulse Pulse Ox 110 H 92 02/08/17 15:26 02/08/17 15:26 Temp Pulse Resp BP Pulse Ox 98.6 F 82 18 177/96 98 02/08/17 19:11 02/08/17 20:09 02/08/17 19:11 02/08/17 20:09 02/08/17 15:47 - Physical Exam Breasts: Positive: deferred Cardiovascular: Regular rate Lungs: Positive: Clear to auscultation Abdomen: Positive: soft (obese, gravid ) Uterus: Positive: enlarged (gravid ) - Obstetrical FHR: auscultation normal Uterine Contraction Monitor Mode: External Uterine Contraction Pattern: Absent Uterine Tone Measurement Phase: Resting Results Result Diagrams: 02/08/17 15:05 02/08/17 15:05 Abnormal lab results 02/08/17 02/08/17 02/08/17 Range/Units 15:05 15:05 15:20 WBC 13.1 H (4.5-11.0) K/mm3 RBC 3.60 L (3.65-5.03) M/mm3 Hgb 7.3 L (10.1-14.3) gm/dl Hct 24.1 L (30.3-42.9) % MCV 67 L (79-97) fl MCH 20 L (28-32) pg RDW 17.5 H (13.2-15.2) % Creatinine 0.6 L (0.7-1.2) mg/dL AST 58 H (5-40) units/L ALT 92 H (7-56) units/L Lactate Dehydrogenase 226 H (91-180) units/L Crossmatch See Detail All other labs normal. Assessment and Plan A: IUP at 35w5d Chronic hypertension with superimposed preeclampsia Incompetent cervix with Hanson cerclage intact Previous x 1 Morbid Obesity Severe chronic Anemia H/o incompetent cervix with s/p cerclage in August 2016 Beta thalassemia minor Genital Herpes without lesion or prodrome Undesired fertility P: Admit to labor and delivery. Type and cross 2 units PRBCs to be given intraop Proceed with repeat section, bilateral tubal ligation and other indicated procedures.
[2017-02-08] MEDS ORDERED: WATER FOR IRRIG STERILE IR ONE (21:10)
[2017-02-08] MEDS ORDERED: NACL 0.9% IR ONE (21:10)
[2017-02-08] MEDS ORDERED: SUBLIMAZE ONE (21:40)
[2017-02-08] MEDS ORDERED: XYLOCAINE MPF 2% ONE ×3 (21:44→22:15)
[2017-02-08] MEDS ORDERED: ZOFRAN ONE (21:45)
[2017-02-08] MEDS ORDERED: MORPHINE ONE (21:47)
[2017-02-08] MEDS ORDERED: VERSED ONE (22:14)
--- NOTE | 2017-02-08 22:58 | Procedure Note ---
OB Delivery Note - Delivery Date of Delivery: 02/08/17 Surgeon: TOPHER CRENSHAW Copy Center Operator: CLARISA RAMON Estimated blood loss: other (900 mL) - Section Preop diagnosis: repeat , other (superimposed preeclampsia ) Postop diagnosis: same section procedure: section, repeat low transverse, bilateral tubal ligation, other (Removal of cerclage ) Disposition: PACU Complications: none Narrative: Please see operative note. - A at 1 minute: 8 at 5 minutes: 9 Infant Gender: Female (5lb 9oz at 2131 pm (2513g))
--- NOTE | 2017-02-08 23:08 | Operative Report ---
Operative Report Operative Report: Date of procedure: February 08, 2017 Preoperative diagnosis: 1) IUP at 35w5d 2) Chronic hypertension with superimposed preeclampsia 3) Previous x 1 4) Morbid Obesity 5) Undesired Fertility 6) Hanson Cerclage 7) Chronic anemia Postoperative diagnosis: Same Procedure: 1) Repeat low transverse section 2) Bilateral tubal ligation via [place] Method 3) Removal of Cerclage Surgeon: Paris Mejias M.D. Anesthesia: Spinal-epidural Findings: 1) Viable female , Apgars 8 and 9, weight 2513g, (5 lb 9 oz) 2) Normal-appearing uterus ovaries and tubes Estimated blood loss: 900 mL IV fluids:1500 mL Blood: 1 unit of PRBCs in the OR Urine output: 350 mL, clear at the end of the procedure Drains: Chin to gravity Specimens: Bilateral tubal segments and placenta to pathology Complications: None. Counts correct x 3 Disposition: Stable to PACU Indication for procedure: Pt is a 31 year old -Pakistani female at 35w5d with a h/o chronic hypertension who presents with elevated blood pressures and increasing LFTs to the office. The decision was made to proceed to delivery secondary to superimposed preeclampsia. Operation in detail: After the risks, benefits, alternatives and complications were explained to the patient she gave informed consent for the procedure. She was subsequently taken to the operating room where spinal-epidural anesthesia was noted to be adequate. She was subsequently placed in the dorsal supine position with leftward tilt and prepped and draped in a normal sterile fashion. heart tones were noted to be in the 145s prior to incision. A timeout was performed. A Pfannenstiel skin incision was made with the knife and carried down to the layer of the fascia with the Bovie. The fascia was incised in the midline and the fascial incision was extended bilaterally with the Bovie. Attention was then turned to the superior aspect of the incision which was grasped with two Kochers, tented up, and dissected off the rectus muscles. Attention was then turned to the inferior aspect of the incision which was grasped with two Kochers , tented up and dissected off the rectus muscles. The rectus muscles were then in the midline. The peritoneum was then entered bluntly. The peritoneal incision was extended with good visualization of the bladder. The peritoneal incision was then stretched. An Madi self-retaining retractor was placed for visualization. The bladder blade was placed. The vesicouterine peritoneum was grasped with smooth pickups and incised with Metzenbaum scissors. Metzenbaum scissors were used to extend the incision bilaterally. The bladder flap was then created digitally and the bladder blade was replaced. A transverse incision was made in the lower uterine segment with a knife and extended bilaterally with the bandage scissors. The head was delivered without difficulty followed by shoulders and body. was bulb suctioned at delivery. The cord was clamped and cut and the was handed to NICU staff in attendance. Cord blood was collected. The placenta was then delivered manually. The uterus was then exteriorized and cleared of all clots and debris. The hysterotomy was then reapproximated with 0 Vicryl in a running locked fashion. A second layer of the same suture was used in imbricating fashion. An additional figure of eight of 2-0 Vicryl was used on the right side of the hysterotomy to obtain hemostasis. Attention was then turned to the tubal ligation. The right tube was identified and followed to to the fimbriae. The tube was then grasped with a [place] and ligated via the [place] method. Attention was then turned to the left tube which in a similar fashion was followed down to the fimbriae, grasped with a Viky, and ligated in via the [place] method. Hemostasis was noted. Both cut ends of the fallopian tubes were cauterized with the Bovie and covered with Surgicel. The hysterotomy was inspected and hemostasis was noted. The uterus was then returned to the peritoneal cavity. All instruments were removed from the abdominal cavity. The gutters were irrigated and cleared of all clots and debris. The hysterotomy was again inspected and noted to be hemostatic. Surgicel was then placed over the hysterotomy. The peritoneum was reapproximated with 2-0 Vicryl in a running fashion. Surgicel was placed over the rectus muscles. The fascia was reapproximated with 0 Vicryl in a running fashion. The subcutaneous tissue was reapproximated with 3-0 Vicryl in a running fashion. The skin was closed with 4-0 Vicryl in a subcuticular fashion. The incision was then covered with steri strips and a pressure dressing. Attention was then turned to removal of the cerclage. The patient was placed in high lithotomy position with candy-cane stirrups. Next a speculum was placed in the vagina which was then cleared of all of clots. The knots overlying the sterile button were grasped with a [place], and the suture was incised on one side above the button and the cerclage was removed. All instruments were then removed from the vagina. The procedure was then ended. The patient tolerated the procedure well and was taken to the PACU in stable condition. All instrument, lap, and needle counts were correct 3.
[2017-02-08] MEDS ORDERED: NARCAN 0.4 MG/1 ML IV PRN (23:11)
--- NOTE | 2017-02-08 23:11 | Post Anesthesia Evaluation ---
- Post Anesthesia Evaluation Patient Participated: Yes Airway Patent: Yes Stable Respiratory Function: Yes Temp > 96.8F: Yes Pain Manageable: Yes Adequeate Hydration: Yes Anesthesia Complications: No Block Receding Appropriately: Yes
[2017-02-08] MEDS: DILAUDID IV PRN ×2 (23:42→23:53)
[2017-02-09] MEDS: DILAUDID IV PRN
[2017-02-09] MEDS ORDERED: CYTOTEC ONE (00:09)
[2017-02-09] MEDS ORDERED: CYTOTEC PR ONE (00:13)
[2017-02-09] MEDS ORDERED: PITOCin/NS 20 UNIT/1000ML DRIP 20 UNITS/1,000 ML BAG IV SCH (00:19)
[2017-02-09] MEDS ORDERED: ZOFRAN IV PRN (00:19)
[2017-02-09] MEDS ORDERED: TUCKS PAD TP PRN (00:19)
[2017-02-09] MEDS ORDERED: SODIUM CHLORIDE FLUSH SYRINGE 10 ML IV PRN (00:19)
[2017-02-09] MEDS ORDERED: MORPHINE IV PRN ×2 (00:19)
[2017-02-09] MEDS ORDERED: NARCAN 0.4 MG/1 ML IV PRN (00:19)
[2017-02-09] MEDS ORDERED: LANSINOH TP PRN (00:19)
[2017-02-09] MEDS: TORADOL IV PRN ×2 (00:30→11:01)
[2017-02-09] MEDS ORDERED: BENADRYL IV ONE (02:23)
[2017-02-09] MEDS: ANCEF/NS 1 GM/50 ML 1 GM/50 ML BAG IV SCH ×2 (03:15→10:41)
[2017-02-09] MEDS: D5LR 1,000 ML IV SCH (05:22)
[2017-02-09 05:48] LABS: Hematocrit 28.3 % (30.3-42.9); Hemoglobin 8.7 gm/dl (10.1-14.3); Mean Corpuscular HGB Conc 31 % (30-34); Mean Corpuscular Volume 71 fl (79-97); Platelet Count 310 K/mm3 (140-440); Red Blood Count 3.98 M/mm3 (3.65-5.03); White Blood Count 20.1 K/mm3 (4.5-11.0)
[2017-02-09 05:49] LABS: Mean Corpuscular Hemoglobin 22 pg (28-32)
[2017-02-09 05:50] LABS: Red Cell Distribution Width 20.4 % (13.2-15.2)
[2017-02-09 06:05] LABS: Alanine Aminotransferase 77 units/L (7-56); Lactate Dehydrogenase 232 units/L (91-180); Uric Acid 4.2 mg/dL (3.5-7.6)
--- NOTE | 2017-02-09 09:07 | Progress Note ---
Assessment and Plan A: POD#1 s/p repeat section at 35w5d, bilateral tubal ligation, removal of cerclage secondary to chronic hypertension with superimposed preeclampsia, anemia s/p 2 units of PRBCs P: Routine care. Continue magnesium sulfate for 24 hrs after delivery. Monitor clinical status closely. Subjective - Subjective Date of service: 02/09/17 Principal diagnosis: s/p repeat , bilateral tubal ligation and cerclage removal Interval history: Pt reports abdominal soreness but otherwise has no complaints. Patient reports: appetite normal, pain well controlled, no voiding normally ( diamond in place ), no flatus, no bowel movement, no ambulating normally (SCDs in place), no nauseated [place]: doing well Objective - Vital Signs Latest vital signs: Vital Signs Temp Pulse Resp BP Pulse Ox 02/09/17 08:18 98.3 F 93 H 18 143/88 02/09/17 06:45 98.4 F 76 20 156/96 02/09/17 04:30 98.4 F 75 20 169/102 02/09/17 01:30 98.3 F 72 18 156/97 02/09/17 00:44 98.5 F 79 20 153/90 98 02/09/17 00:35 82 20 153/94 97 02/09/17 00:30 85 24 156/104 96 02/09/17 00:15 84 18 153/95 97 02/09/17 00:09 98.1 F 89 16 153/95 95 02/09/17 00:00 20 159/97 99 02/08/17 23:53 22 02/08/17 23:45 84 25 H 163/99 98 02/08/17 23:42 19 02/08/17 23:39 98.1 F 83 22 171/100 99 02/08/17 23:38 73 172/104 02/08/17 23:30 77 22 172/104 100 02/08/17 23:24 97.9 F 77 18 164/99 99 02/08/17 23:20 73 18 164/99 99 02/08/17 23:15 72 19 160/97 02/08/17 23:10 69 26 H 163/101 99 02/08/17 23:05 66 18 165/104 99 02/08/17 23:02 73 170/102 02/08/17 23:00 97.9 F 68 27 H 170/102 99 02/08/17 22:58 71 26 H 100 02/08/17 20:15 101 H 163/99 02/08/17 20:14 100 H 172/93 02/08/17 20:09 82 177/96 02/08/17 19:59 85 160/89 02/08/17 19:45 82 177/96 02/08/17 19:42 85 172/85 02/08/17 19:38 82 176/103 02/08/17 19:14 86 153/86 02/08/17 19:11 98.6 F 86 18 153/84 02/08/17 19:10 86 153/84 02/08/17 19:00 98.5 F 82 18 158/89 02/08/17 18:59 82 158/89 02/08/17 18:56 98.2 F 85 18 158/92 02/08/17 18:44 98.2 F 86 18 163/92 02/08/17 18:43 84 159/96 02/08/17 18:29 98.2 F 88 18 163/93 02/08/17 18:14 81 160/90 02/08/17 16:26 87 154/82 02/08/17 15:47 94 H 156/90 98 02/08/17 15:42 87 99 02/08/17 15:37 86 98 02/08/17 15:32 86 139/87 96 02/08/17 15:31 88 94 02/08/17 15:27 166 H 0 L 02/08/17 15:26 110 H 92 Intake and Output 02/08/17 02/09/17 02/09/17 22:59 06:59 14:59 Intake Total 2500 1115 Output Total 350 400 Balance 2150 1115 -400 Intake: IV 2500 625 D5lr 1,000 ml @ 125 mls/ 250 hr IV DIRECT SEAN Rx#: [id number] Lactated Ringers 1,000 ml 1000 @ 2250 mls/hr IV PREOP SEAN Rx#:[id number] MAGNESIUM SULFATE 40GM/ 125 1000ML 40 gm In 1,000 ml @ 1 GM/HR 25 mls/hr IV TITR SEAN Rx#:[id number] PITOCin/NS 20 UNIT/1000ML 250 DRIP 20 units In 1,000 ml @ 250 mls/hr IV DIRECT [facility] Rx#:[id number] Intake, Free Water 240 Blood Product 250 Leukoreduced Red Blood 250 Cells Unit [id number] Output: Urine 350 400 Indwelling Catheter 400 Other: Total, Output Amount 400 Weight 108.409 kg Estimated Blood Loss 900 - Exam Breasts: Present: deferred Cardiovascular: Present: Regular rate Lungs: Present: Clear to auscultation Abdomen: Present: soft (obese ), abnormal bowel sounds (hypoactive ) Uterus: Present: fundal height at umbilicus Extremities: Present: normal Incision: Present: dressed - Labs Labs: Abnormal lab results 02/08/17 02/08/17 02/08/17 Range/Units 15:05 15:05 15:20 WBC 13.1 H (4.5-11.0) K/mm3 RBC 3.60 L (3.65-5.03) M/mm3 Hgb 7.3 L (10.1-14.3) gm/dl Hct 24.1 L (30.3-42.9) % MCV 67 L (79-97) fl MCH 20 L (28-32) pg RDW 17.5 H (13.2-15.2) % Creatinine 0.6 L (0.7-1.2) mg/dL Magnesium (1.7-2.3) mg/dL AST 58 H (5-40) units/L ALT 92 H (7-56) units/L Lactate Dehydrogenase 226 H (91-180) units/L Crossmatch See Detail 02/09/17 02/09/17 Range/Units 05:28 05:28 WBC 20.1 H (4.5-11.0) K/mm3 RBC (3.65-5.03) M/mm3 Hgb 8.7 L (10.1-14.3) gm/dl Hct 28.3 L (30.3-42.9) % MCV 71 L (79-97) fl MCH 22 L (28-32) pg RDW 20.4 H (13.2-15.2) % Creatinine 0.5 L (0.7-1.2) mg/dL Magnesium 3.30 H (1.7-2.3) mg/dL AST 45 H (5-40) units/L ALT 77 H (7-56) units/L Lactate Dehydrogenase 232 H (91-180) units/L Crossmatch
[2017-02-09] MEDS: FEOSOL PO SCH ×2 (10:41→22:01)
[2017-02-09] MEDS: PRENATAL VITAMIN PO SCH (10:41)
--- NOTE | 2017-02-09 10:54 | Progress Note ---
Subjective Date of service: 02/09/17 Principal diagnosis: s/p repeat , bilateral tubal ligation and cerclage removal Interval history: 1st POD after Patient is in the bed, comfortable. Pain is well controlled with pain meds. Has not ambulated due to Mg2SO4 infusion. No residual neurological deficit. No pruritus. No anesthesia complications Objective - Constitutional Vitals: Vital Signs - 12hr 02/08/17 02/08/17 02/08/17 22:58 23:00 23:02 Temperature 97.9 F Pulse Rate 71 68 73 Respiratory 26 H 27 H Rate Blood Pressure 170/102 170/102 O2 Sat by Pulse 100 99 Oximetry 02/08/17 02/08/17 02/08/17 23:05 23:10 23:15 Temperature Pulse Rate 66 69 72 Respiratory 18 26 H 19 Rate Blood Pressure 165/104 163/101 160/97 O2 Sat by Pulse 99 99 Oximetry 02/08/17 02/08/17 02/08/17 23:20 23:24 23:30 Temperature 97.9 F Pulse Rate 73 77 77 Respiratory 18 18 22 Rate Blood Pressure 164/99 164/99 172/104 O2 Sat by Pulse 99 99 100 Oximetry 02/08/17 02/08/17 02/08/17 23:38 23:39 23:42 Temperature 98.1 F Pulse Rate 73 83 Respiratory 22 19 Rate Blood Pressure 172/104 171/100 O2 Sat by Pulse 99 Oximetry 02/08/17 02/08/17 02/09/17 23:45 23:53 00:00 Temperature Pulse Rate 84 Respiratory 25 H 22 20 Rate Blood Pressure 163/99 159/97 O2 Sat by Pulse 98 99 Oximetry 02/09/17 02/09/17 02/09/17 00:09 00:15 00:30 Temperature 98.1 F Pulse Rate 89 84 85 Respiratory 16 18 24 Rate Blood Pressure 153/95 153/95 156/104 O2 Sat by Pulse 95 97 96 Oximetry 02/09/17 02/09/17 02/09/17 00:35 00:44 01:30 Temperature 98.5 F 98.3 F Pulse Rate 82 79 72 Respiratory 20 20 18 Rate Blood Pressure 153/94 153/90 156/97 O2 Sat by Pulse 97 98 Oximetry 02/09/17 02/09/17 02/09/17 04:30 06:45 08:18 Temperature 98.4 F 98.4 F 98.3 F Pulse Rate 75 76 93 H Respiratory 20 20 18 Rate Blood Pressure 169/102 156/96 143/88 O2 Sat by Pulse Oximetry - Labs CBC & Chem 7: 02/09/17 05:28 02/09/17 05:28 Labs: Abnormal lab results 02/08/17 02/08/17 02/08/17 Range/Units 15:05 15:05 15:20 WBC 13.1 H (4.5-11.0) K/mm3 RBC 3.60 L (3.65-5.03) M/mm3 Hgb 7.3 L (10.1-14.3) gm/dl Hct 24.1 L (30.3-42.9) % MCV 67 L (79-97) fl MCH 20 L (28-32) pg RDW 17.5 H (13.2-15.2) % Creatinine 0.6 L (0.7-1.2) mg/dL Magnesium (1.7-2.3) mg/dL AST 58 H (5-40) units/L ALT 92 H (7-56) units/L Lactate Dehydrogenase 226 H (91-180) units/L Crossmatch See Detail 02/09/17 02/09/17 Range/Units 05:28 05:28 WBC 20.1 H (4.5-11.0) K/mm3 RBC (3.65-5.03) M/mm3 Hgb 8.7 L (10.1-14.3) gm/dl Hct 28.3 L (30.3-42.9) % MCV 71 L (79-97) fl MCH 22 L (28-32) pg RDW 20.4 H (13.2-15.2) % Creatinine 0.5 L (0.7-1.2) mg/dL Magnesium 3.30 H (1.7-2.3) mg/dL AST 45 H (5-40) units/L ALT 77 H (7-56) units/L Lactate Dehydrogenase 232 H (91-180) units/L Crossmatch
--- NOTE | 2017-02-09 13:06 | Ultrasound Report ---
BIOPHYSICAL PROFILE: 2 - breathing movements 2 - movements 2 - posture and tone 2 - Qualitative amniotic fluid volume 8 - TOTAL SCORE OF POSSIBLE 8 Heart Rate (bpm) 156
--- NOTE | 2017-02-09 13:14 | Ultrasound Report ---
Limited OB ultrasound. Findings: A single intrauterine is identified in cephalic presentation. The ORQUIDEA is normal at 11.1 cm. The heart rate is 157 beats per minute.
[2017-02-09] MEDS: PERCOCET 5/325 PO PRN (17:18)
[2017-02-09] MEDS: MOTRIN PO PRN (17:19)
[2017-02-09] MEDS: MYLICON PO PRN (22:01)
[2017-02-09] MEDS ORDERED: M-M-R II VACCINE SUB-Q ONE (23:10)
[2017-02-10] MEDS: PERCOCET 5/325 PO PRN ×4 (00:02→20:11)
[2017-02-10] MEDS: MOTRIN PO PRN ×3 (00:03→20:12)
[2017-02-10] MEDS: D5LR 1,000 ML IV SCH (00:08)
[2017-02-10] MEDS ORDERED: BOOSTRIX IM ONE (06:00)
[2017-02-10] MEDS: FEOSOL PO SCH ×2 (10:22→22:03)
[2017-02-10] MEDS: PRENATAL VITAMIN PO SCH (10:22)
--- NOTE | 2017-02-10 12:41 | Progress Note ---
Assessment and Plan A/P POD#2 s/p repeat c/sec chronic HTN superimposed preeclampsia, severe anemia BP elevated [id number] started procardia for chronic HTN H/H 7.3/24--8.7/28.3 iron tablets B+ s/p BTl for contraception Breast and bottle feeding consider d/c home tomorrow Subjective - Subjective Date of service: 02/10/17 Principal diagnosis: s/p repeat , bilateral tubal ligation and cerclage removal Patient reports: appetite normal, voiding normally, pain well controlled, ambulating normally : doing well Objective - Vital Signs Latest vital signs: Vital Signs Temp Pulse Resp BP 02/10/17 09:30 97.5 F L 81 20 144/90 02/10/17 04:20 98.3 F 98 H 20 153/88 02/10/17 00:00 98.4 F 86 20 151/99 02/09/17 21:57 98.3 F 70 20 149/95 02/09/17 20:00 98.2 F 81 20 142/71 02/09/17 18:20 98.3 F 78 18 159/89 02/09/17 16:01 97.9 F 82 20 145/88 02/09/17 13:04 98.1 F 81 20 149/83 Intake and Output 02/09/17 02/10/17 02/10/17 22:59 06:59 14:59 Intake Total 1955 100 Output Total 1200 200 Balance 755 -100 Intake: IV 1595 100 D5lr 1,000 ml @ 125 mls/ 219 100 hr IV DIRECT SEAN Rx#: [id number] MAGNESIUM SULFATE 40GM/ 1376 1000ML 40 gm In 1,000 ml @ 1 GM/HR 25 mls/hr IV TITR SEAN Rx#:[id number] Oral 360 Output: Urine 1200 200 Indwelling Catheter 1200 Void 200 Other: Total, Intake Amount 360 Total, Output Amount 300 200 # Voids Void 1 - Exam Breasts: Present: normal Cardiovascular: Present: Regular rate, Normal S1 Lungs: Present: Clear to auscultation, Normal air movement Abdomen: Present: normal appearance, soft, normal bowel sounds Uterus: Present: normal, firm, fundal height below umbilicus. Absent: bogginess , tenderness Extremities: Present: normal Deep Tendon Reflex Grade: Normal +2 Incision: Present: normal, dry, intact - Labs Labs: Abnormal lab results 02/08/17 02/09/17 02/09/17 Range/Units 15:20 13:15 18:05 Magnesium 3.70 H 3.90 H (1.7-2.3) mg/dL Crossmatch See Detail
[2017-02-10] MEDS: PROCARDIA XL PO SCH (14:27)
[2017-02-10] MEDS: MILK OF MAGNESIA PO PRN (14:33)
[2017-02-10] MEDS: MYLICON PO PRN (14:33)
[2017-02-11] MEDS: PROCARDIA XL PO SCH ×4 (00:42→21:52)
[2017-02-11] MEDS: MOTRIN PO PRN (06:11)
[2017-02-11] MEDS: PERCOCET 5/325 PO PRN ×3 (06:12→21:51)
--- NOTE | 2017-02-11 08:45 | Progress Note ---
Assessment and Plan O: BP: 140-162/84-92 Procardia 30mg QD increased to 60mg A: Stable POD #3 CHTN-Superimposed Preeclampsia Anemia P: Increase Procardia RTO one week BP Check D/C home Rx meds Subjective - Subjective Date of service: 02/11/17 Principal diagnosis: s/p repeat , bilateral tubal ligation and cerclage removal Patient reports: appetite normal, voiding normally, pain well controlled, flatus , ambulating normally, other (Denies PIH S&S) [employer]: doing well, nursing well, bottle feeding Objective - Vital Signs Latest vital signs: Vital Signs Temp Pulse Resp BP 02/11/17 05:10 97.9 F 89 20 140/85 02/11/17 01:40 98.8 F 89 20 158/89 02/10/17 19:45 98.5 F 91 H 20 162/92 02/10/17 17:10 98.2 F 86 20 154/84 02/10/17 12:40 97.9 F 68 18 150/89 02/10/17 09:30 97.5 F L 81 20 144/90 Intake and Output 02/10/17 02/11/17 02/11/17 22:59 06:59 14:59 Intake Total 240 120 Balance 240 120 Intake: Oral 240 120 Other: Total, Intake Amount 240 120 # Voids Void 1 1 - Exam Breasts: Present: deferred Abdomen: Present: normal appearance, soft. Absent: distention, tenderness Uterus: Present: normal, firm, fundal height below umbilicus. Absent: bogginess , tenderness Extremities: Present: normal. Absent: edema Incision: Present: normal, dry, intact
--- NOTE | 2017-02-11 08:48 | Discharge Summary ---
Providers - Providers Date of Admission: 02/08/17 15:36 Date of discharge: 02/11/17 Attending physician: TOPHER CRENSHAW 02/09/17 00:19 Consult to [employer] Eng[employer] Planning Operator [CONS] Routine Reason For Exam: Primary care physician: TOPHER CRENSHAW Hospitalization Reason for admission: section, IUP at term Delivery: Procedure: bilateral tubal ligation, repeat low transverse Episiotomy: none Incision: normal, dry, intact Other procedures: tubal ligation complications: other (preeclampsia) Discharge diagnosis: IUP at term delivered [place] baby: female Condition at discharge: Good Disposition: DC-01 TO HOME OR SELFCARE Plan - Discharge Medications Prescriptions: Docusate Sodium [Colace] 100 mg PO BID PRN #60 capsule PRN Reason: Constipation Ferrous Sulfate [Feosol 325 MG tab] 325 mg PO TID #90 tablet Ibuprofen [Motrin] 800 mg PO Q8HR PRN #30 tablet PRN Reason: Pain NIFEdipine XL [Procardia Xl] 60 mg PO Q12HR #60 tablet oxyCODONE /ACETAMINOPHEN [Percocet 5/325] 1 tab PO Q6HR PRN #40 tablet PRN Reason: Pain Vit-Fe Fumar-FA [ Vitamin] 1 tab PO QDAY #30 tablet - Provider Discharge Summary Activity: routine, no sex for 6 weeks, no heavy lifting 4 weeks, no strenuous exercise Diet: routine Additional instructions: [] Smoking cessation referral if applicable(refer to patient education folder for contact #) [] Refer to [facility]'s [facility] Booklet Call your doctor immediately for: * Fever > 100.5 * Heavy vaginal bleeding ( >1 pad per hour) * Severe persistent headache * Shortness of breath * Reddened, hot, painful area to leg or breast * Drainage or odor from incision. * Keep incision clean and dry at all times and follow doctor's instructions regarding bathing/showering - Follow up plan Follow up: TOPHER CRENSHAW MD [Primary Care Provider] - 7 Days
[2017-02-11] MEDS: FEOSOL PO SCH ×2 (11:01→21:51)
[2017-02-11] MEDS: PRENATAL VITAMIN PO SCH (11:02)
[2017-02-11] MEDS: MYLICON PO PRN ×2 (14:54→21:51)
[2017-02-12] MEDS: MOTRIN PO PRN ×2 (01:14→10:38)
[2017-02-12] MEDS: PERCOCET 5/325 PO PRN ×2 (05:31→10:39)
[2017-02-12] MEDS: MILK OF MAGNESIA PO PRN (05:31)
--- NOTE | 2017-02-12 08:39 | Event Note ---
Date: 02/12/17 Pt reports chest pain while leaving the unit after discharge. Discharge held. EKG ordered which showed normal sinus rhythm. Pt reports that the chest pain resolved this morning. Cardiology consult ordered. Continue to monitor clinically.
--- NOTE | 2017-02-12 08:47 | Consultation ---
History of Present Illness Consult date: 02/12/17 Consult reason: chest pain History of present illness: This is a 31yr old woman with a history of Hypertension, obesity whom is status post section on 02/08. On yesterday, patient complained of mid sternal chest pain. She denies shortness of breath and palpitations. There was no chest pain on exertion. A 12 lead ECG done shows a normal sinus rhythm. Cardiac consultation was requested. Today, patient is resting in bed and appears comfortable. She reports no further chest pain. Past History Social history: no significant social history Medications and Allergies Allergies Allergy/AdvReac Type Severity Reaction Status Date / Time bupropion HCl Allergy Severe Shortness Verified 09/02/16 11:17 [From Wellbutrin] of Breath Home Medications Medication Instructions Recorded Confirmed Last Taken Type Ferrous Sulfate [Feosol 325 MG tab] 325 mg PO TID #120 tablet 02/12/15 02/09/17 02/08/17 Rx Labetalol HCl 300 mg PO BID #60 tablet 02/05/17 02/09/17 02/05/17 Rx Docusate Sodium [Colace] 100 mg PO BID PRN #60 capsule 02/10/17 Unknown Rx Ferrous Sulfate [Feosol 325 MG tab] 325 mg PO TID #90 tablet 02/10/17 Unknown Rx Ibuprofen [Motrin] 800 mg PO Q8HR PRN #30 tablet 02/10/17 Unknown Rx Vit-Fe Fumar-FA [ 1 tab PO QDAY #30 tablet 02/10/17 Unknown Rx Vitamin] oxyCODONE /ACETAMINOPHEN [Percocet 1 tab PO Q6HR PRN #40 tablet 02/10/17 Unknown Rx 5/325] NIFEdipine XL [Procardia Xl] 60 mg PO Q12HR #60 tablet 02/11/17 Unknown Rx Active Meds: Active Medications Ferrous Sulfate (Feosol) 325 mg PO BID SEAN Last Admin: 02/11/17 21:51 Dose: 325 mg Hydralazine HCl (Apresoline) 5 mg IV Q30MIN PRN PRN Reason: Hypertension Last Admin: 02/08/17 23:38 Dose: 5 mg Dextrose/Lactated Ringer's (D5lr) 1,000 mls @ 125 mls/hr IV DIRECT SEAN Last Admin: 02/10/17 00:08 Dose: 125 mls/hr Oxytocin/Sodium Chloride (Pitocin/Ns 20 Unit/1000ml Drip) 20 units in 1,000 mls @ 250 mls/hr IV DIRECT SEAN Ibuprofen (Motrin) 800 mg PO Q8H PRN PRN Reason: Pain, Mild (1-3) Last Admin: 02/12/17 01:14 Dose: 800 mg Ketorolac Tromethamine (Toradol) 30 mg IV Q6H PRN PRN Reason: Pain, Moderate (4-6) Stop: 02/14/17 00:18 Last Admin: 02/09/17 11:01 Dose: 30 mg Magnesium Hydroxide (Milk Of Magnesia) 30 ml PO QHS PRN PRN Reason: Constip Unrelieved By Senna Last Admin: 02/12/17 05:31 Dose: 30 ml Morphine Sulfate (Morphine) 2 mg IV Q4H PRN PRN Reason: Pain, Moderate (4-6) Morphine Sulfate (Morphine) 4 mg IV Q4H PRN PRN Reason: Pain , Severe (7-10) Last Admin: 02/09/17 11:01 Dose: 4 mg Multi-Ingredient Ointment (Lansinoh) 1 applic TP PRN PRN PRN Reason: dryness/cracking Last Admin: 02/09/17 11:02 Dose: 1 applic Multivitamins/Iron/Calcium ( Vitamin) 1 each PO QDAY [facility] Last Admin: 02/11/17 11:02 Dose: 1 each Naloxone HCl (Narcan 0.4 Mg/1 Ml) 0.1 mg IV Q2MIN PRN PRN Reason: Res Rate </= 8 or 02 SAT < 92% Nifedipine (Procardia Xl) 60 mg PO Q12HR [facility] Last Admin: 02/11/17 21:52 Dose: 60 mg Ondansetron HCl (Zofran) 4 mg IV Q8H PRN PRN Reason: Nausea And Vomiting Oxycodone/Acetaminophen (Percocet 5/325) 2 tab PO Q4H PRN PRN Reason: Pain, Moderate (4-6) Last Admin: 02/12/17 05:31 Dose: 2 tab Simethicone (Mylicon) 80 mg PO Q6H PRN PRN Reason: Gas pain Last Admin: 02/11/17 21:51 Dose: 80 mg Sodium Chloride (Sodium Chloride Flush Syringe 10 Ml) 10 ml IV PRN PRN PRN Reason: LINE FLUSH Witch Maria Ines/Glycerin (Tucks Pad) 1 each TP PRN PRN PRN Reason: Hemorrhoids/cleansing/soothing Physical Examination Vital Signs Pulse Pulse Ox 110 H 92 02/08/17 15:26 02/08/17 15:26 General appearance: no acute distress, obese HEENT: Positive: PERRL Cardiac: Positive: Reg Rate and Rhythm Results 02/09/17 05:28 02/09/17 05:28 Assessment and Plan Chest pain, atypical Hypertension s/p section Obese Anemia s/p transfusion of PRBCs Elevated liver enzymes
[2017-02-12 09:25] VITALS: BP 138/94
[2017-02-12] MEDS: PROCARDIA XL PO SCH (10:37)
== END 2017-02-12 17:05 | disposition home or self-care (01) | DRG 765 ==
LOC: TRG 15:00 → LD 15:36 → OBSVTOIN 15:36 → INTOOBSV 15:36 → OB 02-09 02:07
PROVIDERS: ADMIT Obstetrics & Gynecology; ATTEND Obstetrics & Gynecology
PROC: 10D00Z1 Extraction of Products of Conception, Low, Open Approach (ICD-10-PCS; principal; 2017-02-08)
PROC: 0UB70ZZ Excision of Bilateral Fallopian Tubes, Open Approach (ICD-10-PCS; 2017-02-08)
PROC: 0UCC0ZZ Extirpation of Matter from Cervix, Open Approach (ICD-10-PCS; 2017-02-08)
PROC: 30233N1 Transfusion of Nonautologous Red Blood Cells into Peripheral Vein, Percutaneous Approach (ICD-10-PCS; 2017-02-08)
PROC: 3E0234Z Introduction of Serum, Toxoid and Vaccine into Muscle, Percutaneous Approach (ICD-10-PCS; 2017-02-09)
DX: O11.4 Pre-existing hypertension with pre-eclampsia, complicating childbirth (principal); O34.33 Maternal care for cervical incompetence, third trimester; O99.42 Diseases of the circulatory system complicating childbirth; Z3A.35 35 weeks gestation of pregnancy; Z37.0 Single live birth; O99.214 Obesity complicating childbirth; O99.02 Anemia complicating childbirth; O98.32 Other infections with a predominantly sexual mode of transmission complicating childbirth; D56.3 Thalassemia minor; Z23 Encounter for immunization; E66.01 Morbid (severe) obesity due to excess calories; Z91.19 Patient's noncompliance with other medical treatment and regimen; Z82.49 Family history of ischemic heart disease and other diseases of the circulatory system; Z83.3 Family history of diabetes mellitus; Z79.899 Other long term (current) drug therapy; D64.9 Anemia, unspecified; O34.211 Maternal care for low transverse scar from previous cesarean delivery; A60.09 Herpesviral infection of other urogenital tract; R07.89 Other chest pain; Z30.2 Encounter for sterilization
CPT/HCPCS: 36415; 76815; 76819; 81001; 82565; 83615; 83735; 84450; 84460; 84484; 84550; 85027; 86850; 86900; 86901; 86922; 88302; 88307; 93005; 93010; 99211; A6250; G0463; J0360; J0690; J1170; J1200; J1885; J2250; J2270; J2405; J2590; J2765; J3010; J3475; J7040; J7120; J7121; P9016